=== PATIENT | female | born 1980 | race Caucasian/White ===

== ENCOUNTER 2019-05-08 05:54 | Inpatient (IN) ==
[2019-05-08] MEDS ORDERED: Lidocaine 1% 20 ML MDV INFILT PRN (06:14)
[2019-05-08] MEDS ORDERED: Naloxone 0.4 MG/ML INJ IVP PRN (06:14)
[2019-05-08] MEDS ORDERED: *HR* Nalbuphine 10 MG/ML AMPUL IVP PRN (06:14)
[2019-05-08] MEDS ORDERED: Metoclopramide 10 MG/2 ML VIAL IVP PRN (06:14)
[2019-05-08] MEDS ORDERED: Famotidine 20 MG/2 ML VIAL IVP PRN (06:14)
[2019-05-08] MEDS ORDERED: miSOPROStoL 25 MCG TABLET VG PRN (06:14)
[2019-05-08 06:45] LABS: Basophils % 0.3 %; Eosinophils # 0.2 K/mcL (0.0-0.6); Eosinophils % 1.8 %; Hematocrit 30.6 % (35.3-44.9); Hemoglobin 10.6 g/dL (11.5-15.4); Immature Granulocytes % 0.6 % (0-4); Lymphocytes # 2.2 K/mcL (0.6-4.6); Lymphocytes % 19.9 %; Mean Corpuscular HGB Conc 34.6 g/dL (31.6-35.5); Mean Corpuscular Hemoglobin 30.9 pg (28.0-33.3); Mean Corpuscular Volume 89.2 fL (83.0-100.0); Mean Platelet Volume 10.4 fL (9.4-12.4); Monocytes # 0.6 K/mcL (0.0-1.3); Monocytes % 5.1 %; Neutrophils # 7.9 K/mcL (1.6-8.9); Platelet Count 271 K/mcL (140-400); Red Blood Count 3.43 M/mcL (3.82-4.97); Red Cell Distribution Width 13.2 % (11.5-14.5); Segmented Neutrophils % 72.3 %; White Blood Count 10.9 K/mcL (4.3-11.1)
[2019-05-08] MEDS ORDERED: Bupivacaine-MPF 0.25% 10 ML VIAL EP ONE (11:00)
[2019-05-08] MEDS ORDERED: EPHEDrine 50 MG/ML VIAL IVP PRN (11:00)
[2019-05-08] MEDS ORDERED: *HR* FentaNYL (PF) 100 MCG/2 ML VIAL EP ONE (11:00)
[2019-05-08] MEDS ORDERED: *HR* FentaNYL (PF) 100 MCG/2 ML VIAL ONE (11:01)
[2019-05-08] MEDS ORDERED: Bupivacaine-MPF 0.25% 10 ML VIAL ONE (11:01)
[2019-05-08 11:23] LABS: Amphetamine Screen,Urine Negative ng/mL (Cutoff=1000); Barbiturate Screen,Urine Negative ng/mL (Cutoff=200); Benzodiazepines Screen,Urine Negative ng/mL (Cutoff=200); Cannabinoid Screen,Urine Negative ng/mL (Cutoff = 50); Cocaine Screen,Urine Negative ng/mL (Cutoff= 300); Opiate Screen,Urine Negative ng/mL (Cutoff=300); Phencyclidine Screen,Urine Negative ng/mL (Cutoff=25)
[2019-05-08] MEDS: Ringers Solution, Lactated 1,000 ML IVC SCH ×2 (12:15→16:14)
[2019-05-08] MEDS ORDERED: Oxytocin 20 units/ LR 1000 mL 20 UNIT/1,000 ML BAG IVC SCH (15:30)
[2019-05-08] MEDS: Epidural Premix (fent/bupiv) 110 ML EP SCH ×2 (16:57→23:17)
[2019-05-08] MEDS ORDERED: Mag Hydrox/Al Hydrox/Simeth 30 ML UDC PO PRN (19:38)
[2019-05-08] MEDS ORDERED: Ondansetron 4 MG/2 ML VIAL IVP ONE (20:48)
[2019-05-09] MEDS ORDERED: Acetaminophen 325 MG TABLET PO PRN (03:09)
[2019-05-09] MEDS ORDERED: Oxytocin 20 units/ LR 1000 mL 20 UNIT/1,000 ML BAG IVC SCH (03:09)
[2019-05-09] MEDS ORDERED: *HR* HYDROcodone/Acet 5/325 mg TABLET PO PRN (03:09)
[2019-05-09] MEDS: Ibuprofen 600 MG TABLET PO PRN ×3 (04:26→23:06)
[2019-05-09] MEDS ORDERED: Lanolin 7 G OINT...G. TP PRN (06:23)
[2019-05-09] MEDS: Prenatal Vit/FA 1 EACH TABLET PO SCH (08:11)
[2019-05-09] MEDS ORDERED: Prenatal Vit/FA 1 EACH TABLET PO SCH (09:00)
[2019-05-09 10:40] LABS: Basophils % 0.2 %; Eosinophils # 0.1 K/mcL (0.0-0.6); Eosinophils % 0.4 %; Hematocrit 27.8 % (35.3-44.9); Hemoglobin 9.7 g/dL (11.5-15.4); Immature Granulocytes % 0.8 % (0-4); Lymphocytes # 1.6 K/mcL (0.6-4.6); Lymphocytes % 8.3 %; Mean Corpuscular HGB Conc 34.9 g/dL (31.6-35.5); Mean Corpuscular Hemoglobin 31.3 pg (28.0-33.3); Mean Corpuscular Volume 89.7 fL (83.0-100.0); Mean Platelet Volume 10.4 fL (9.4-12.4); Monocytes # 1.3 K/mcL (0.0-1.3); Monocytes % 6.7 %; Neutrophils # 15.9 K/mcL (1.6-8.9); Platelet Count 258 K/mcL (140-400); Red Cell Distribution Width 13.3 % (11.5-14.5); Segmented Neutrophils % 83.6 %
[2019-05-10] MEDS: Ibuprofen 600 MG TABLET PO PRN ×2 (07:47→13:52)
[2019-05-10] MEDS: Prenatal Vit/FA 1 EACH TABLET PO SCH (07:47)
[2019-05-10 08:18] VITALS: BP 110/61
== END 2019-05-10 15:05 | disposition home or self-care (01) | DRG 807 ==
LOC: 1NENULAB 05:54 → 1NENUOBS 05-09 03:54
PROVIDERS: ADMIT Obstetrics & Gynecology; ATTEND Obstetrics & Gynecology

== ENCOUNTER 2021-03-18 09:50 | Inpatient (IN) ==
[2021-03-18] MEDS ORDERED: Ondansetron 4 MG/2 ML VIAL IVP PRN (09:57)
[2021-03-18] MEDS ORDERED: Famotidine 20 MG/2 ML VIAL IVP PRN (09:57)
[2021-03-18] MEDS ORDERED: Metoclopramide 10 MG/2 ML VIAL IVP PRN (09:57)
[2021-03-18] MEDS ORDERED: Lidocaine 1% 20 ML MDV INFILT PRN (09:57)
[2021-03-18] MEDS ORDERED: *HR* Nalbuphine 10 MG/ML AMPUL IV PRN (09:57)
[2021-03-18] MEDS ORDERED: Naloxone 0.4 MG/ML INJ IVP PRN (09:57)
[2021-03-18] MEDS ORDERED: Azithromycin 500 MG in 0.9 % Sodium Chloride 250 ML IVPB PRN (09:57)
[2021-03-18] MEDS ORDERED: Ringers Solution, Lactated 1,000 ML IVC SCH (10:00)
[2021-03-18] MEDS ORDERED: miSOPROStoL 25 MCG TABLET VG PRN (10:03)
[2021-03-18 10:43] LABS: Basophils % 0.3 %; Eosinophils # 0.1 K/mcL (0.0-0.6); Hematocrit 34.1 % (35.3-44.9); Hemoglobin 11.6 g/dL (11.5-15.4); Immature Granulocytes % 0.4 % (0-4); Lymphocytes # 1.6 K/mcL (0.6-4.6); Lymphocytes % 15.1 %; Mean Corpuscular Volume 91.2 fL (83.0-100.0); Mean Platelet Volume 9.8 fL (9.4-12.4); Monocytes # 0.6 K/mcL (0.0-1.3); Neutrophils # 8.2 K/mcL (1.6-8.9); Platelet Count 272 K/mcL (140-400); Red Blood Count 3.74 M/mcL (3.82-4.97); Red Cell Distribution Width 13.3 % (11.5-14.5); Segmented Neutrophils % 77.2 %; White Blood Count 10.7 K/mcL (4.3-11.1)
[2021-03-18] MEDS ORDERED: miSOPROStoL 25 MCG TABLET PO PRN (10:43)
[2021-03-18 11:17] LABS: Influenza A PCR Negative (Negative); Influenza B PCR Negative (Negative); Resp. Syncytial Virus PCR Negative (Negative)
[2021-03-18 11:22] LABS: SARS-CoV-2 by PCR (In House) Negative (Negative)
[2021-03-18] MEDS ORDERED: Ropivacaine/PF 0.2% 20 ML VIAL EP ONE (14:44)
[2021-03-18] MEDS ORDERED: *HR* FentaNYL (PF) 100 MCG/2 ML VIAL EP ONE (14:44)
[2021-03-18] MEDS ORDERED: EPHEDrine 50 MG/ML VIAL IVP PRN (14:44)
[2021-03-18] MEDS ORDERED: Epidural Premix (fent/bupiv) 110 ML EP SCH (14:45)
[2021-03-18] MEDS ORDERED: *HR* FentaNYL (PF) 100 MCG/2 ML VIAL ONE (15:06)
[2021-03-18] MEDS ORDERED: Ropivacaine/PF 0.2% 20 ML VIAL ONE (15:07)
[2021-03-18] MEDS: Oxytocin 20 units/ LR 1000 mL 20 UNIT/1,000 ML BAG IVC SCH (15:46)
[2021-03-18 16:23] LABS: Amphetamine Screen,Urine Negative ng/mL (Cutoff=1000); Barbiturate Screen,Urine Negative ng/mL (Cutoff=200); Benzodiazepines Screen,Urine Negative ng/mL (Cutoff=200); Cannabinoid Screen,Urine Negative ng/mL (Cutoff = 50); Cocaine Screen,Urine Negative ng/mL (Cutoff= 300); Opiate Screen,Urine Negative ng/mL (Cutoff=300); Phencyclidine Screen,Urine Negative ng/mL (Cutoff=25)
[2021-03-18] MEDS ORDERED: Mag Hydrox/Al Hydrox/Simeth 30 ML UDC PO ONE (18:42)
[2021-03-18] MEDS ORDERED: Ondansetron 4 MG/2 ML VIAL IVP ONE (19:40)
[2021-03-19] MEDS: Oxytocin 20 units/ LR 1000 mL 20 UNIT/1,000 ML BAG IVC SCH (00:36)
[2021-03-19] MEDS ORDERED: Benzocaine/Menthol 56 GM AEROSOL SPRAY TP PRN ×2 (05:12→06:21)
[2021-03-19] MEDS ORDERED: Lanolin 7 G OINT...G. TP PRN (06:21)
[2021-03-19] MEDS ORDERED: Measles/Mumps/Rubella Vacc 0.5 ML VIAL SQ PRN (06:21)
[2021-03-19] MEDS ORDERED: Ondansetron ODT 4 MG TAB.RAPDIS SL PRN (06:21)
[2021-03-19] MEDS ORDERED: Oxytocin 20 units/ LR 1000 mL 20 UNIT/1,000 ML BAG IVC SCH (06:21)
[2021-03-19] MEDS: Ibuprofen 600 MG TABLET PO SCH ×2 (06:40→12:34)
[2021-03-19] MEDS: Acetaminophen 325 MG TABLET PO SCH ×2 (06:40→12:34)
[2021-03-19] MEDS ORDERED: Prenatal Vit/FA 1 EACH TABLET PO SCH (09:00)
[2021-03-19 14:22] VITALS: BP 105/62; PULSE 64; TEMP 98.1; O2SAT 97
== END 2021-03-19 17:27 | disposition home or self-care (01) | DRG 806 ==
LOC: 1NENULAB 09:50 → 1NENUOBS 03-19 00:48
PROVIDERS: ADMIT Obstetrics & Gynecology; ATTEND Obstetrics & Gynecology